=== PATIENT | male | born 1965 | race Caucasian/White ===

== ENCOUNTER 2016-11-16 09:18 | Emergency (ER) | payer BC, OTHER ==
[2016-11-16 10:25] VITALS: BP 155/97
--- NOTE | 2016-11-16 10:46 | UC ---
Throat Pain/Nasal Darshan HPI - HPI Summary HPI Summary: pt c/o sinus pressure and pain X 10 days. Has history of sinusitis. Has had sinus surgery 5 years ago. - History of Current Complaint Chief Complaint: UCRespiratory Stated Complaint: SINUS Time Seen by Provider: 11/16/16 10:40 Hx Obtained From: Patient Onset/Duration: Gradual Onset, Lasting Days - 10 Severity: Moderate Associated Signs & Symptoms: Positive: Sinus Discomfort, Other - difficulty hearing Related History: Seasonal Allergies, Prior ENT Surgery - Epiglottits Risk Factors Epiglottis Risk Factors: Negative - Allergies/Home Medications Allergies/Adverse Reactions: Allergies Allergy/AdvReac Type Severity Reaction Status Date / Time environmental Allergy Eyes Uncoded 11/16/16 10:25 Itchy/Swollen/Red/Watery Home Medications: Home Medications Triamcinolone Acetonide (Nasal [Nasacort Allergy 24Hr Chi] 110 mcg BOTH NARES DAILY 11/16/16 [History Confirmed 11/16/16] PMH/Surg Hx/FS Hx/Imm Hx Previously Healthy: Yes - Surgical History Surgical History: Yes Surgery Procedure, Year, and Place: sinus surgery, neck biopsy - Family History Known Family History: Positive: Other - positive [facility] URI - Social History Lives: With Family Alcohol Use: Occasionally Substance Use Type: None Smoking Status (MU): Never Smoked Tobacco Review of Systems Constitutional: Negative Skin: Negative Eyes: Negative ENT: Other - nasal congestion, sinus pressure, tenderness Respiratory: Negative Cardiovascular: Negative Gastrointestinal: Negative Genitourinary: Negative Motor: Negative Neurovascular: Negative Musculoskeletal: Negative Neurological: Headache Psychological: Negative All Other Systems Reviewed And Are Negative: Yes Physical Exam Triage Information Reviewed: Yes Appearance: Ill-Appearing Vital Signs: Initial Vital Signs Temp 98.7 F 11/16/16 10:16 Pulse 82 11/16/16 10:16 Resp 20 11/16/16 10:16 BP 155/97 11/16/16 10:16 Pulse Ox 97 11/16/16 10:16 ENT: Positive: Nasal congestion, Other: - maxillary sinus tenderness Neck exam: Normal Respiratory Exam: Normal Cardiovascular Exam: Normal Musculoskeletal Exam: Normal Neurological Exam: Normal Psychological Exam: Normal Skin Exam: Normal Throat Pain/Nasal Course/Dx - Differential Dx/Diagnosis Differential Diagnosis/HQI/PQRI: Sinusitis, URI Provider Diagnoses: sinusitis Discharge - Discharge Plan Condition: Stable Disposition: HOME Prescriptions: Amoxicillin (*) 875 mg PO BID #20 tab Loratadine & Pseudoephedrine [Loratadine/Pseudoephedrin 10-240 mg] 1 tab PO DAILY #14 tab Patient Education Materials: Sinusitis (ED) Referrals: Darlene Mathew MD [Primary Care Provider] -
== END 2016-11-16 10:56 | disposition home or self-care (01) ==
LOC: UCCORT 09:18
DX: J32.9 Chronic sinusitis, unspecified (principal)
CPT/HCPCS: 99212; G0463

== ENCOUNTER 2018-11-07 07:39 | Emergency (ER) | payer OTHER ==
[2018-11-07 08:19] VITALS: BP 140/97
[2018-11-07] MEDS ORDERED: Fluorescein Sodium TOPICAL* 1 MG TEST STRIP OPHTHALMIC ONE (08:29)
[2018-11-07] MEDS ORDERED: Tetracaine 0.5% OPTH.SOL 4 ML* 1 DROP BTL ONE (08:29)
--- NOTE | 2018-11-07 09:15 | ED ---
Throat Pain/Nasal Congestion - HPI Summary HPI Summary: 53 yr old male with the complaint of left eyelid drainage, and swelling. He states his symptoms began yesterday with irritation to the left eye, and watering, and then yellow drainage. he woke up this morning with his eye crusted shut. He states that four days ago he was playing with his dogs and was scratched in the left lower eyelid. He did not have any persistent pain or FB sensation after this happened. He does not wear contact lenses. - History of Current Complaint Chief Complaint: UCEye Time Seen by Provider: 11/07/18 08:27 - Allergies/Home Medications Allergies/Adverse Reactions: Allergies Allergy/AdvReac Type Severity Reaction Status Date / Time environmental Allergy Eyes Uncoded 11/07/18 08:13 Itchy/Swollen/Red/Watery PMH/Surg Hx/FS Hx/Imm Hx Previously Healthy: Yes - Surgical History Surgery Procedure, Year, and Place: sinus surgery, neck biopsy (as child) Infectious Disease History: No Infectious Disease History: Denies: Traveled Outside the [place] in Last 30 Days - Family History Known Family History: Positive: Other - positive [facility] URI - Social History Alcohol Use: Occasionally Substance Use Type: Reports: None Smoking Status (MU): Never Smoked Tobacco Review of Systems Constitutional: Negative Positive: Drainage, Erythema All Other Systems Reviewed And Are Negative: Yes Physical Exam Triage Information Reviewed: Yes Vital Signs On Initial Exam: Initial Vitals Temp Pulse Resp BP Pulse Ox 98.1 F 80 17 140/97 97 11/07/18 08:13 11/07/18 08:13 11/07/18 08:13 11/07/18 08:13 11/07/18 08:13 Vital Signs Reviewed: Yes Appearance: Positive: Well-Appearing, No Pain Distress Skin: Positive: Warm, Skin Color Reflects Adequate Perfusion Head/Face: Positive: Normal Head/Face Inspection Eyes: Positive: EOMI, Conjunctiva Inflammed - left greater then right with obvious yellow discharge. The eyelids upper and lower are with mild edema on left side., Other: - the wood lamp with fluro used and no uptake on cornea left eye. ENT: Positive: Pharynx normal. Negative: Nasal congestion Neck: Positive: Supple Respiratory/Lung Sounds: Positive: Clear to Auscultation, Breath Sounds Present Cardiovascular: Positive: RRR. Negative: Murmur Musculoskeletal: Positive: Strength/ROM Intact Neurological: Positive: Sensory/Motor Intact, Alert, Oriented to Person Place, Time, CN Intact II-III Psychiatric: Positive: Normal - [place] Coma Scale Best Eye Response: 4 - Spontaneous Best Motor Response: 6 - Obeys Commands Best Verbal Response: 5 - Oriented Coma Scale Total: 15 Diagnostics - Vital Signs Vital Signs Temp Pulse Resp BP Pulse Ox 11/07/18 08:13 98.1 F 80 17 140/97 97 - Laboratory Lab Statement: Any lab studies that have been ordered have been reviewed, and results considered in the medical decision making process. EENT Course/Dx - Course Course Of Treatment: 53 yr old with conjunctivitis, and some eyelid cellulitis. Rx with augmentin and also sulfa eye drop. - Diagnoses Provider Diagnoses: Conjunctivitis, Cellulitis of left eyelid, Hypertension Discharge - Sign-Out/Discharge Documenting (check all that apply): Patient Departure All imaging exams completed and their final reports reviewed: No Studies - Discharge Plan Condition: Good Disposition: HOME Prescriptions: Amoxicillin/Clavulanate TAB* [Augmentin TAB 875*] 875 mg PO BID #20 tab Sulfacetamide Sodium [Bleph-10] 5 ml OPHTHALMIC Q4HR #2 drops Patient Education Materials: Conjunctivitis (ED), Cellulitis (ED), Hypertension (ED) Referrals: Darlene Mathew MD [Primary Care Provider] - 2 Days - Billing Disposition and Condition Condition: GOOD Disposition: Home
== END 2018-11-07 09:33 | disposition home or self-care (01) ==
LOC: UCCORT 07:39
DX: H10.9 Unspecified conjunctivitis (principal); H00.034 Abscess of left upper eyelid; H00.035 Abscess of left lower eyelid; I10 Essential (primary) hypertension
CPT/HCPCS: 99212; A9270-GY; G0463